=== PATIENT | male | born 1985 | race Caucasian/White ===

== ENCOUNTER 2021-10-06 11:39 | Emergency (ER) | payer OTHER, SELFPAY ==
[2021-10-06] VITALS (37 sets, daily range): BP systolic 115–149; BP diastolic 76–88; PULSE 61–82; RESP 12–21; TEMP 36.5; O2SAT 95–99
--- NOTE | ~2021-10-06 | XR_ITS ---
EXAMINATION: XR chest 2V DATE: 10/06/2021 12:45 INDICATION: Midsternal chest pain. TECHNIQUE: Frontal and lateral views of the chest were obtained. COMPARISON: Chest 2 views 11/17/2011 FINDINGS: The chest demonstrates clear lungs without pneumonia, pleural effusion, or pneumothorax. Th e heart size is normal. There is mild chronic anterior wedging of T12 and L1 vertebral bodies, likely physiologic. IMPRESSION: 1. No acute cardiopulmonary disease. Reviewed, dictated and finalized at location A. CUTTER
--- NOTE | ~2021-10-06 | CT_ITS ---
EXAMINATION: CTA brain carotid EXAM DATE: 10/06/2021 17:42 INDICATION: Confusion and left-sided neck pain. TECHNIQUE: Noncontrast head CT. Spiral CTA of the carotid arteries was performed with intravenous i njection 100 cc of Omnipaque 350. Axial, coronal, sagittal reformatted images reviewed. Additional r eformatted images created on dedicated 3-D workstation. NASCET comparable standard used to assess th e degree of arterial stenosis. Spiral CT angiogram cerebral arteries performed with the same intrave nous injection of contrast. Source images of the brain CTA transferred to dedicated workstation for 3 -D rotational image creation. Coronal, sagittal maximum intensity pixel images also reviewed. The d ose-length product (DLP) for this examination was 1946.21 mGy-cm. The exposure was tailored accordi ng to patient size, and iterative reconstruction (ASIR) was used as additional dose reduction techniq ue. There is no prior study for comparison. FINDINGS: Normal aortic arch configuration. There is no carotid plaque, 0% stenosis bilaterally. The left vertebral artery is dominant. There is no carotid or vertebral basilar arterial dissection or f ibromuscular dysplasia. There are no cerebral artery aneurysms. There is symmetric cerebral artery ar borization. The sagittal, transverse and sigmoid sinuses enhance normally, no venous sinus thrombosis . Internal cerebral veins also enhance normally. There is no acute intraparenchymal hemorrhage. No evidence of intraparenchymal brain mass lesion. N o evidence of acute infarction. There is no mass effect or midline shift. There is no obstructive hyd rocephalus suspected. There are no extra-axial collections. Incidental Findings: Lung apices are clear. Moderate-sized right maxillary sinus mucous retention cys t. Mild to moderate right sphenoid mucoperiosteal thickening. Mild to moderate lower cervical spondyl osis. IMPRESSION: 1. No acute carotid or intracranial findings. 2. Bilateral carotid 0% stenosis. Reviewed, dictated and finalized at location A. L WORKER
--- NOTE | 2021-10-06 11:42 | ECG_ITS ---
Measurements Intervals [place] Rate: 77 P: 62 [place]: 137 QRS: 0 QRSD: 105 T: 54 QT: 347 QTc: 394 Interpretive Statements SINUS RHYTHM CANNOT RULE OUT SEPTAL INFARCT, AGE INDETERMINATE ABNORMAL ECG Electronically Signed On 10-06-2021 13:32:55 DIRECTOR COUNSELING [employer]AU by Boris Medina D.O.
[2021-10-06 12:17] LABS: Basophils Percent Auto 0.3 % (0.2-1.2); Eosinophils Absolute Auto 0.1 K/mm3 (0-0.3); Eosinophils Percent Auto 1.4 % (0-4.4); Hematocrit 48.9 % (42.0-52.0); Hemoglobin 16.6 g/dL (14.0-18.0); Immature Granulocyte Absolute 0.03 K/mm3 (0.00-0.031); Immature Granulocyte Percent A 0.5 % (0-0.5); Lymphocytes Absolute Auto 2.09 K/mm3 (0.9-3.2); Lymphocytes Percent Auto 31.4 % (18.3-44.2); Mean Corpuscular HGB Conc 33.9 g/dl (32-36); Mean Corpuscular Hemoglobin 29.3 pg (26-34); Mean Corpuscular Volume 86.4 fl (80-100); Mean Platelet Volume 8.9 fl (7.4-10.4); Monocytes Absolute Auto 0.5 K/mm3 (0.1-0.6); Monocytes Percent Auto 7.8 % (2.6-8.5); Neutrophils Absolute Auto 3.9 K/mm3 (1.3-6.7); Neutrophils Percent Auto 58.6 % (45.5-73.1); Platelet Count Result 203 k/mm3 (150-375); Red Blood Count 5.66 M/mm3 (4.6-6.20); Red Cell Distribution Width 13.8 % (11.5-14.5); White Blood Count 6.7 K/mm3 (4.5-10.0)
[2021-10-06 12:25] LABS: Alanine Aminotransferase 29 U/L (4-50); Albumin Level 4.6 g/dL (3.5-5.1); Alkaline Phosphatase 59 U/L (38-126); Anion Gap 9 mmol/L (8-16); Aspartate Amino Transferase 27 U/L (17-59); Bilirubin,Total 0.8 mg/dL (0.2-1.3); Blood Urea Nitrogen 15 mg/dL (9-20); Calcium 9.6 mg/dL (8.4-10.2); Carbon Dioxide 22 mmol/L (22-30); Chloride 106 mmol/L (98-107); Estimated CRCL calculation 110 ml/min; Estimated Glomerular Filt Rate > 60; Glucose 100 mg/dL (65-110); Lipase 81 U/L (23-300); Potassium 4.3 mmol/L (3.4-5.0); Prothrombin Time 12.7 Seconds (11.1-14.7); Sodium 137 mmol/L (137-145)
[2021-10-06 12:26] LABS: Partial Thromboplastin Time 24.5 SECONDS (22.3-36.8)
[2021-10-06 12:37] LABS: Troponin I < 0.012 ng/mL (0.000-0.034)
[2021-10-06] MEDS: ASPIRIN 81 MG CHEWABLE TABLET 324 MG PO (14:11)
[2021-10-06 14:33] LABS: D Dimer 0.27 ug/mL (<0.48)
[2021-10-06 15:14] LABS: Troponin I < 0.012 ng/mL (0.000-0.034)
--- NOTE | 2021-10-06 15:33 | ED.CHESTPAIN ---
HPI - Chest Pain General Chief Complaint: Chest Pain Stated Complaint: chest pain, neck pains, weakness- several days Time Seen by Provider: 10/06/21 13:57 Source: RN notes reviewed History of Present Illness HPI narrative: Patient presents emergency department from home for left upper chest pain. Patient states that he has been having intermittent chest pain in the left upper chest that radiates in the left side of his neck for the past 2 days. States the pain is described as sharp and stabbing and will last several minutes and resolve there is no pain that goes into his arm he states that it seems to be worse with inactivity and improved with activity he denies any fevers or chills shortness of breath abdominal pain nausea or vomiting states he just recovered from COVID-19 and has been diagnosed on the seventh he states that he has been having some brain fog and that some things that used to be easier for him to do takes a little more thought and he is a little bit weaker when he does them denies any unilateral numbness or tingling patient denies any pain at this time Related Data Allergies Allergy/AdvReac Type Severity Reaction Status Date / Time No Known Allergies Allergy Unverified 10/06/21 14:11 Review of Systems Review of Systems: Gen.: Denies fevers or chills Eyes: Denies eye pain or visual change ENT: Denies congestion Respiratory: Denies shortness of breath or cough CV: Denies chest pain or palpitations GI: Denies abdominal pain nausea, emesis or diarrhea Musculoskeletal: Denies back pain or muscle pain Neuro: Denies numbness, tingling, weakness or focal weakness Skin: Denies rash Except as documented, all other systems reviewed and negative [facility] Past Medical History Medical History (Updated 10/06/21 @ 18:23 by Ruben Martínez DO) COVID-19 Social History Social History (Updated 10/06/21 @ 18:20 by Ruben Martínez DO) Smoking status: Never smoker Exam Narrative: APPEARANCE: No acute distress, nontoxic, resting in bed HEENT: Normocephalic, atraumatic, OMM, EYES: PERRL, EOMI NECK: Supple, nontender, full range of motion without pain, no meningismus RESPIRATORY: No respiratory distress, clear to auscultation bilaterally with no rhonchi wheezing or rales CARDIOVASCULAR: RRR s murmur ABDOMINAL: Soft, nontender, nondistended MUSCULOSKELETAL: Moves all extremities. No clubbing, cyanosis or edema. NEURO: A and O ?3, following commands, speech normal, no facial,muscle strength 5 out of 5 bilateral upper and lower extremities SKIN:: Warm, dry. Normal Color PSYCHIATRIC: Normal affect/mood Course Course Emergency Course: Patient states he has been under increased stress recently been having some marital issues and he believes this is the cause of his symptoms Discussed Dr. Ortiz presentation work-up agrees with plan for discharge to follow-up as an outpatient Discussed with patient results of workup and diagnosis. Discussed need for follow-up with primary care, proper use of medication, and reasons to return to the emergency department. Patient understands and agrees to current treatment plan Vital Signs Vital signs: Vital Signs Temperature 97.7 F 10/06/21 11:50 Pulse Rate 82 10/06/21 11:50 Respiratory Rate 16 10/06/21 11:50 Blood Pressure 149/83 H 10/06/21 11:50 Pulse Oximetry 99 10/06/21 11:50 Temperature 97.7 F 10/06/21 11:50 Pulse Rate 63 10/06/21 16:55 Respiratory Rate 18 10/06/21 16:55 Blood Pressure 121/80 10/06/21 16:55 Pulse Oximetry 97 10/06/21 16:55 MDM - Chest Pain MDM Narrative Medical decision making narrative: Patient's EKGs and labs are without significant high risk changes. Cardiac risk factors reviewed. Patient is felt likely low risk for ACS and reasonable for further risk stratification testing as an outpatient. Patient with 3 - troponins in ED. Pain was not sudden or maximal in onset without tearing or ripping quality. No other signs of sympt
[2021-10-06 18:26] LABS: Troponin I < 0.012 ng/mL (0.000-0.034)
== END 2021-10-06 19:00 | disposition home or self-care (01) ==
PROVIDERS: Emergency Provider Emergency Medicine
DX: R07.89 Other chest pain (principal); Z86.16 Personal history of COVID-19
CPT/HCPCS: 36415; 70496; 70498; 71046; 80053; 83690; 84484; 85025; 85380; 85610; 85730; 93005; 99284; A9270; Q9967

== ENCOUNTER 2022-10-02 20:16 | Emergency (ER) | payer SELFPAY ==
--- NOTE | ~2022-10-02 | XR_ITS ---
EXAM: XR finger 2nd LT min 2V DATE: 10/02/2022 20:51 HISTORY: lump on finger X 1 YR, SWELLING/REDNESS/PAIN . COMPARISON: None available. FINDINGS: Normal mineralization. No fracture or dislocation. No lytic or blastic lesion. Joint space s are maintained. No erosion or periosteal change. Dorsal second digit soft tissue mass at the level of the distal aspect of the second proximal phalange. IMPRESSION: No acute osseous finding in the left second digit. Reviewed, dictated and finalized at location K. OR CONTACT CENTRE OPERATOR
[2022-10-02 20:24] VITALS: BP 162/85; PULSE 105; RESP 20; TEMP 36.6; O2SAT 96
--- NOTE | 2022-10-02 21:34 | ED.GENADULT ---
HPI - General Adult General Chief complaint: Extremity Injury, Upper Stated complaint: left index injury Time Seen by Provider: 10/02/22 20:30 History of Present Illness HPI narrative: 37-year-old male presents to the emergency room for an evaluation of a mass on her his left index finger. States the mass has been pea-sized for over a year, has not had it evaluated. States over the past couple of days it has grown in size threefold. Patient has not been evaluated by anybody prior to today for this mass. Review of Systems Review of Systems: CONSTITUTIONAL: Denies fever, chills, or sweats. EYES: Denies visual changes, redness, or discharge. ENT: Denies rhinorrhea, congestion, sore throat, or otalgia. CARDIOVASCULAR: Denies chest pain, palpitations, or edema. RESPIRATORY: Denies cough or dyspnea. GASTROINTESTINAL: Denies abdominal pain, nausea, vomiting, or diarrhea. GENITOURINARY: Denies dysuria or hematuria. SKIN: Reports painful mass to MUSCULOSKELETAL: Denies back pain, joint pain, or myalgia. NEUROLOGIC: Denies headache, numbness, dizziness, or weakness. PSYCHIATRIC: Denies anxiety or depression. Exam Narrative: GENERAL: Well-appearing, well-nourished, no physical limitations, and in no acute distress. HEAD: Normocephalic, atraumatic. EYES: Conjunctivae normal, PERRLA and EOMI. CHEST: Clear to auscultation. No respiratory distress. No wheezes rales or rhonchi. HEART: Regular rate and rhythm. No murmur heard. Normal peripheral pulses. EXTREMITIES: Left index finger: Large 4 x 4 centimeter circular indurated mass to the dorsal surface of the PIP joint. No erythema or signs of lymphangitic spread SKIN: Warm, dry, no rash. No noted wounds NEURO: No focal deficits. Alert and oriented x3. MAEW. CN's II-XI intact bilaterally, normal gait PSYCH: Cooperative. Normal mood and affect. Course Vital Signs Vital signs: Vital Signs Temperature 36.6 C 10/02/22 20:24 Pulse Rate 105 H 10/02/22 20:24 Respiratory Rate 20 10/02/22 20:24 Blood Pressure 162/85 H 10/02/22 20:24 Pulse Oximetry 96 10/02/22 20:24 Oxygen Delivery Room Air 10/02/22 20:24 Temperature 36.6 C 10/02/22 20:24 Pulse Rate 105 H 10/02/22 20:24 Respiratory Rate 20 10/02/22 20:24 Blood Pressure 162/85 H 10/02/22 20:24 Pulse Oximetry 96 10/02/22 20:24 Oxygen Delivery Room Air 10/02/22 20:24 Medical Decision Making Vital Signs Vital Signs: Vital Signs Temperature 36.6 C 10/02/22 20:24 Pulse Rate 105 H 10/02/22 20:24 Respiratory Rate 20 10/02/22 20:24 Blood Pressure 162/85 H 10/02/22 20:24 Pulse Oximetry 96 10/02/22 20:24 Oxygen Delivery Room Air 10/02/22 20:24 Temperature 36.6 C 10/02/22 20:24 Pulse Rate 105 H 10/02/22 20:24 Respiratory Rate 20 10/02/22 20:24 Blood Pressure 162/85 H 10/02/22 20:24 Pulse Oximetry 96 10/02/22 20:24 Oxygen Delivery Room Air 10/02/22 20:24 Discharge Plan Discharge Clinical Impression: Myxoid cyst Patient Disposition: Home, Self-Care Condition: Stable Instructions: Antibiotic Form, Cyst (ED) Prescriptions: New cephalexin 500 mg tablet 500 mg PO Q12H Qty: 14 0RF prednisone 20 mg tablet 40 mg PO DAILY 5 Days Qty: 10 0RF Follow-up/Referrals: Ruben Akers MD [Physician] - PHYSICIAN,SALMON GILLNET VESSEL OPERATOR [Primary Care Provider] - Time of Disposition: 21:42
[2022-10-02 22:58] VITALS: BP 150/80; PULSE 90; RESP 18; TEMP 36.7; O2SAT 100
== END 2022-10-02 23:00 | disposition home or self-care (01) ==
PROVIDERS: Emergency Provider Nurse Practitioner Family
DX: M67.442 Ganglion, left hand (principal)
CPT/HCPCS: 73140; 99283